=== PATIENT | female | born 1980 | race Caucasian/White ===

== ENCOUNTER → 2018-02-08 | Outpatient (CLI) | payer BC ==
[~2018-02-08] MED LIST: MELATONIN PO; TRIA15OI10 TP
[2018-02-08 16:37] LABS: BASOPHILS # (AUTO) 0.07 x10^3/uL (0-0.1); BASOPHILS % (AUTO) 1 % (0-1); EOSINOPHILS # (AUTO) 0.05 x10^3/uL (0-0.4); EOSINOPHILS % (AUTO) 1 % (1-7); LYMPHOCYTES % (AUTO) 28 % (22-44); MD NO; MEAN CORPUSCULAR HEMOGLOBIN 30.7 pg (27.0-34.8); MEAN CORPUSCULAR VOLUME 90.3 fL (80-100); MEAN PLATELET VOLUME 8.6 fL (7.4-10.4); MONOCYTES # (AUTO) 0.79 x10^3/uL (0.2-0.8); MONOCYTES % (AUTO) 10 % (2-9); NEUTROPHILS # (AUTO) 4.74 x10^3/uL (1.8-6.8); NEUTROPHILS % (AUTO) 60 % (42-75); PLATELET COUNT 248 x10^3/uL (130-400)
[2018-02-08 16:51] LABS: ALBUMIN 4.1 g/dL (3.4-5.0); ANION GAP 9 mmol/L (5-15); CALCIUM 8.8 mg/dL (8.5-10.1); CHLORIDE 104 mmol/L (98-107)
[2018-02-08 16:54] LABS: ALANINE AMINOTRANSFERASE 40 U/L (12-78); ALKALINE PHOSPHATASE 65 U/L (45-117); BILIRUBIN,TOTAL 0.4 mg/dL (0.2-1.0); CREATININE 0.73 mg/dL (0.55-1.02)
[2018-02-08 17:00] LABS: MICROSCOPIC NOT IND
[2018-02-08 17:04] LABS: CULTURE INDICATED? NO
== END | disposition home or self-care (01) ==
LOC: STAR 15:22
PROVIDERS: ATTEND Obstetrics & Gynecology
DX: Z01.818 Encounter for other preprocedural examination (principal)
CPT/HCPCS: 36415; 80053; 81003; 85025; 93005

== ENCOUNTER 2018-02-15 06:52 | Day surgery (SDC) | payer BC ==
[~2018-02-15] VITALS: Ht 167.6 cm; Wt 70.5 kg
[2018-02-15] MEDS ORDERED: LACTATED RINGERS 1,000 ML IV SCH (07:22)
[2018-02-15] MEDS ORDERED: GABAPENTIN 300 MG CAPSULE PO ONE (07:30)
[2018-02-15] MEDS ORDERED: ACETAMINOPHEN 500 MG TABLET PO ONE (07:30)
[2018-02-15 07:45] LABS: HCG UR SG 1.027 (1.003-1.030)
[2018-02-15] MEDS ORDERED: SODIUM CHLORIDE 0.9% 100 ML ONE (07:48)
[2018-02-15] MEDS ORDERED: VASOPRESSIN 20 UNIT/ML, 1ML ONE (07:48)
[2018-02-15] MEDS ORDERED: FENTANYL PF 250 MCG/5ML ONE (08:45)
[2018-02-15] MEDS ORDERED: MIDAZOLAM 1 MG/ML, 2ML ONE (08:45)
[2018-02-15] MEDS ORDERED: SCOPOLAMINE PATCH, 1.5MG PATCH.TD72 TD ONE (08:57)
[2018-02-15] MEDS ORDERED: PROPOFOL 10 MG/ML, 20ML ONE (09:12)
[2018-02-15] MEDS ORDERED: ROCURONIUM 10 MG/ML,10ML ONE (09:12)
[2018-02-15] MEDS ORDERED: SUCCINYLCHOLINE 20 MG/ML, 10ML ONE (09:12)
[2018-02-15] MEDS ORDERED: CEFAZOLIN 1,000 MG ONE (09:12)
[2018-02-15] MEDS ORDERED: ONDANSETRON 2MG/ML, 2ML ONE (09:12)
[2018-02-15] MEDS ORDERED: DEXAMETHASONE 4 MG/ML, 1ML ONE (09:12)
[2018-02-15] MEDS ORDERED: PROMETHAZINE 25 MG/ML, 1ML IV PRN (10:00)
[2018-02-15] MEDS ORDERED: LABETALOL 5MG/ML, 20ML IV PRN (10:00)
[2018-02-15] MEDS ORDERED: HALOPERIDOL 5 MG/ML IV PRN (10:00)
[2018-02-15] MEDS ORDERED: ALBUTEROL SULFATE 2.5 MG/3 ML NPPB PRN (10:00)
[2018-02-15] MEDS ORDERED: OXYcodone 5 MG/5 ML ORAL.SOL UDC PO PRN ×2 (10:00→16:00)
[2018-02-15] MEDS ORDERED: hydrALAzine 20 MG/ML, 1ML IV PRN (10:00)
[2018-02-15] MEDS ORDERED: FENTANYL PF 100 MCG/2ML ONE (10:58)
[2018-02-15] MEDS ORDERED: OXYcodone 5 MG/5 ML ORAL.SOL UDC ONE (10:58)
[2018-02-15] MEDS: FENTANYL PF 100 MCG/2ML IV PRN ×2 (11:15→11:19)
[2018-02-15] MEDS ORDERED: HYDROmorphone 2 MG/ML, 1ML ONE (11:21)
[2018-02-15] MEDS: HYDROmorphone 2 MG/ML, 1ML IVPush PRN ×2 (11:23→11:49)
[2018-02-15] MEDS ORDERED: KETOROLAC 30 MG/1 ML ONE (11:28)
[2018-02-15] MEDS ORDERED: KETOROLAC 30 MG/1 ML IVPush ONE (11:30)
== END 2018-02-15 17:55 | disposition home or self-care (01) ==
LOC: OUT 06:52
PROVIDERS: ATTEND Obstetrics & Gynecology
DX: N92.0 Excessive and frequent menstruation with regular cycle (principal); N94.6 Dysmenorrhea, unspecified; D25.9 Leiomyoma of uterus, unspecified; G43.909 Migraine, unspecified, not intractable, without status migrainosus; Z72.89 Other problems related to lifestyle; Z88.1 Allergy status to other antibiotic agents; Z88.8 Allergy status to other drugs, medicaments and biological substances
CPT/HCPCS: 36415; 58140; 81025; 86850; 86900; 88305; C1765; J0330; J0690; J1100; J1170; J1885; J2250; J2405; J2704; J3010; J7120

== ENCOUNTER → 2019-04-17 | Outpatient (CLI) | payer BC ==
[2019-04-17 09:11] LABS: BASOPHILS # (AUTO) 0.03 x10^3/uL (0-0.1); BASOPHILS % (AUTO) 1 % (0-1); EOSINOPHILS # (AUTO) 0.07 x10^3/uL (0-0.4); EOSINOPHILS % (AUTO) 2 % (1-7); LYMPHOCYTES # (AUTO) 1.52 x10^3/uL (1-3.4); LYMPHOCYTES % (AUTO) 40 % (22-44); MD NO; MEAN CORPUSCULAR HEMOGLOBIN 28.9 pg (27.0-34.8); MEAN CORPUSCULAR HGB CONC 32.2 g/dL (32.4-35.8); MEAN CORPUSCULAR VOLUME 89.6 fL (80-100); MEAN PLATELET VOLUME 8.4 fL (7.4-10.4); MONOCYTES % (AUTO) 13 % (2-9); NEUTROPHILS # (AUTO) 1.67 x10^3/uL (1.8-6.8); NEUTROPHILS % (AUTO) 44 % (42-75); PLATELET COUNT 234 x10^3/uL (130-400); RED BLOOD COUNT 4.43 x10^6/uL (3.82-5.3); RED CELL DISTRIBUTION WIDTH 14.3 % (9.6-15.2)
[2019-04-17 09:16] LABS: ALANINE AMINOTRANSFERASE 27 U/L (12-78); ANION GAP 4 mmol/L (5-15); CALCIUM 8.7 mg/dL (8.5-10.1); CHLORIDE 107 mmol/L (98-107); CHOLESTEROL, TOTAL 182 mg/dL (140-239); CREATININE 0.83 mg/dL (0.55-1.02)
[2019-04-17 09:27] LABS: ALKALINE PHOSPHATASE 61 U/L (45-117); BILIRUBIN,TOTAL 0.6 mg/dL (0.2-1.0); CHOL/HDL RATIO 3.1; HDL CHOL % 32 % (28-40); HDL CHOLESTEROL (DIRECT) 59 mg/dL (40-60); TOTAL PROTEIN 7.7 g/dL (6.4-8.2)
[2019-04-17 10:34] LABS: LDL CHOLESTEROL,CALCULATED 113 mg/dL (54-169); LDL/HDL RATIO 1.9 (0.5-3.0); TRIGLYCERIDES 52 mg/dL (50-200); VLDL CHOLESTEROL 10 mg/dL (0-25)
== END | disposition home or self-care (01) ==
LOC: LAB 08:50
PROVIDERS: ATTEND Nurse Practitioner Family
DX: Z00.00 Encounter for general adult medical examination without abnormal findings (principal); Z13.220 Encounter for screening for lipoid disorders; K58.2 Mixed irritable bowel syndrome; E55.9 Vitamin D deficiency, unspecified; L40.8 Other psoriasis; B00.9 Herpesviral infection, unspecified
CPT/HCPCS: 36415; 80053; 80061; 82306; 84443; 85025